=== PATIENT | female | born 1930 | race Caucasian/White ===

== ENCOUNTER 2017-05-26 11:50 | Inpatient (IN) | payer MEDICARE, BC ==
[2017-05-26] VITALS (7 sets, daily range): BP systolic 142–169; BP diastolic 81–89; PULSE 85–100; RESP 16; TEMP 97.6; O2SAT 96–97
[~2017-05-26] VITALS: Ht 167.6 cm; Wt 65.0 kg
[2017-05-26 12:16] LABS: BLOOD, URINE LARGE (NEG); GLUCOSE,URINE NEG (NEG); KETONE, URINE 15 mg/dL (NEG); NITRITE,URINE NEG (NEG); PH, URINE 5.5 (5.0-8.5); URINE LEUKOCYTE ESTERASE SMALL (NEG)
[2017-05-26] MEDS ORDERED: LOTR5CAP3 PO (12:26)
[2017-05-26] MEDS ORDERED: ASPI-516 CHEW (12:26)
[2017-05-26] MEDS ORDERED: PRIL20TA2 (12:26)
[2017-05-26 12:28] LABS: BILIRUBIN, URINE NEG (NEG)
[2017-05-26 12:30] LABS: URINE COLOR DARK-YELLOW (YELLW/STRAW)
--- NOTE | 2017-05-26 12:35 | PD ---
HPI Chief Complaint: Complaint Time Seen by Provider: 12:19 Travel History International Travel<30 days: No Contact w/Intl Traveler<30days: No Traveled to known affect area: No History of Present Illness HPI 86 year old female presenting with nausea and decreased appetite. She has felt nauseous for the past week and has not been eating as much as she normally does. She believes she has a UTI due to pelvic pressure. She denies dysuria, flank pain, fevers, chills. She says she feels similar to when she used to get UTIs. She is generally healthy and has a history of HTN. She also endorses a weight loss of approximately 15 pounds over the past 3 months. She's not been trying to lose weight. Denies any vaginal bleeding vaginal discharge. She is status post hysterectomy, denies any fevers. States symptoms are moderate, gradually worsening, for the past few days, associated signs symptoms as above. PFSH Past Medical History GERD: Yes Hypertension: Yes ?: Not Past Surgical History Hysterectomy: Yes Social History Alcohol Use: Yes (2 drinks per night) Tobacco Use: No Substance Use: No Allergies-Medications (Allergen,Severity, Reaction): Coded Allergies: No Known Allergies (Unverified , 05/26/17) Reported Meds & Prescriptions Reported Meds & Active Scripts Active Reported Aspirin 81 Mg Chew 81 Mg CHEW DAILY Prilosec (Omeprazole Magnesium) 20 Mg Tab Lotrel (Amlodipine-Benazepril) 5-20 Mg Cap 1 Cap PO DAILY Review of Systems Except as stated in HPI: all other systems reviewed are Neg Physical Exam Narrative GENERAL: in no acute distress, well appearing, thin. Quite pleasant. SKIN: Warm and dry. HEAD: Atraumatic. Normocephalic. EYES: Pupils equal and round. No scleral icterus. No injection or drainage. ENT: No nasal bleeding or discharge. Mucous membranes pink and moist. NECK: Trachea midline. No JVD. CARDIOVASCULAR: Regular rate and rhythm. RESPIRATORY: No accessory muscle use. Clear to auscultation. Breath sounds equal bilaterally. GASTROINTESTINAL: Abdomen soft, non-tender, nondistended. Hepatic and splenic margins not palpable. MUSCULOSKELETAL: Extremities without clubbing, cyanosis, or edema. No obvious deformities. NEUROLOGICAL: Awake and alert. No obvious cranial nerve deficits. Motor grossly within normal limits. Five out of 5 muscle strength in the arms and legs. Normal speech. PSYCHIATRIC: Appropriate mood and affect; insight and judgment normal. Data Data Last Documented VS Vital Signs Date Time Temp Pulse Resp B/P (MAP) Pulse Ox O2 Delivery O2 Flow Rate FiO2 05/26/17 15:20 91 16 149/83 (105) 97 Room Air 05/26/17 11:57 97.6 Orders Orders Urinalysis - C+S If Indicated (05/26/17 12:05) Basic Metabolic Panel (Bmp) (05/26/17 12:33) Complete Blood Count With Diff (05/26/17 12:33) Lipase (05/26/17 12:33) Iv Access Insert/Monitor (05/26/17 12:33) Ecg Monitoring (05/26/17 12:33) Oximetry (05/26/17 12:33) Sodium Chloride 0.9% Flush (Ns Flush) (05/26/17 12:45) Chest, Single Ap (05/26/17 12:33) Sodium Chlor 0.9% 1000 Ml Inj (Ns 1000 M (05/26/17 12:45) Ct Abd/Pel W/O Iv Contrast (05/26/17 ) Act Partial Throm Time (Ptt) (05/26/17 15:51) Prothrombin Time / Inr (Pt) (05/26/17 15:51) Consult Urology (05/26/17 ) Admit Order (Ed Use Only) (05/26/17 ) Labs Laboratory Tests Test 05/26/17 12:09 05/26/17 12:50 Urine Collection Type VOIDED Urine Color DARK-YELLOW Urine Turbidity HAZY Urine pH 5.5 Urine Specific [place] 1.025 Urine Protein 300 OR GREATER mg/dL Urine Glucose (UA) NEG mg/dL Urine Ketones 15 mg/dL Urine Occult Blood LARGE Urine Nitrite NEG Urine Bilirubin NEG Urine Leukocyte Esterase SMALL Urine RBC 25-49 /hpf Urine WBC 6-8 /hpf Urine Squamous Epithelial Cells 3-5 /hpf Urine Bacteria FEW /hpf Urine Hyaline Casts 10-14 /lpf Urine Mucus FEW /lpf Microscopic Urinalysis Comment CULT NOT INDICATED White Blood Count 11.6 TH/MM3 Red Blood Count 3.66 MIL/MM3 Hemoglobin 12.0 GM/DL Hematocrit 35.9 % Mean Corpuscular Volume 98.2 FL Mean Corpuscular Hemoglobin 32.7 PG Mean Corpuscular Hemoglobin Concent 33.3 % Red Cell Distribution Width 13.2 % Platelet Count 305 TH/MM3 Mean Platelet Volume 7.9 FL Neutrophils (%) (Auto) 82.3 % Lymphocytes (%) (Auto) 7.7 % Monocytes (%) (Auto) 7.5 % Eosinophils (%) (Auto) 0.2 % Basophils (%) (Auto) 2.3 % Neutrophils # (Auto) 9.5 TH/MM3 Lymphocytes # (Auto) 0.9 TH/MM3 Monocytes # (Auto) 0.9 TH/MM3 Eosinophils # (Auto) 0.0 TH/MM3 Basophils # (Auto) 0.3 TH/MM3 CBC Comment DIFF FINAL Differential Comment Prothrombin Time 10.2 SEC Prothromb Time International Ratio 1.0 RATIO Activated Partial Thromboplast Time 28.6 SEC Blood Urea Nitrogen 11 MG/DL Creatinine 0.98 MG/DL Random Glucose 117 MG/DL Calcium Level 9.0 MG/DL Sodium Level 137 MEQ/L Potassium Level 4.1 MEQ/L Chloride Level 104 MEQ/L Carbon Dioxide Level 22.4 MEQ/L Anion Gap 11 MEQ/L Estimat Glomerular Filtration Rate 54 ML/MIN Lipase 138 U/L [facility] Medical Decision Making Medical Screen Exam Complete: Yes Emergency Medical Condition: Yes Differential Diagnosis UTI, obstructive uropathy, hematuria, pelvic mass. Narrative Course Patient began her workup with a urinalysis which showed hematuria, workup was broadened to include basic labs which were fairly unremarkable, given her hematuria and her age had recommended that she undergo CT imaging to exclude mass, unfortunately the CT imaging did reveal a mass which was obstructing her ureter, the patient was discussed with Dr. Brower's who agrees for admission for further workup and management. Discussed with Dr. Vera who is also agreeable for admission. Dr. Brower's to consider further workup including nephrostomy tube by IR versus other management. All the results were discussed with the patient and she is agreeable to admission for management of her uropathy but regarding her cancer she is fairly certain she will not pursue aggressive therapy, she is open to seeing oncologists in the future just for more education and possibility of treatment though she would be highly resistant to this. She is alert and awake and oriented and is able to make her own medical decisions. Diagnosis Primary Impression: Pelvic mass in female Additional Impression: Obstructive uropathy Admitting Information Admitting Physician Requests: Admit Condition: Stable Yvon Teague MD May 26, 2017 12:35
[2017-05-26 12:37] LABS: MUCUS URINE FEW /lpf (OCC)
[2017-05-26 12:38] LABS: BACTERIA, URINE FEW /hpf
[2017-05-26] MEDS ORDERED: SODIUM CHLOR 0.9% 1000 ML INJ 1,000 ML IV ONE (12:45)
[2017-05-26] MEDS ORDERED: SODIUM CHLORIDE 0.9% FLUSH 10 ML FLUSH IV FLUSH PRN ×2 (12:45→16:15)
[2017-05-26 12:59] LABS: AUTOMATED NEUTROPHIL # 9.5 TH/MM3 (1.8-7.7); BASOPHIL # 0.3 TH/MM3 (0-0.2); BASOPHIL % 2.3 % (0.0-2.0); EOSINOPHIL % 0.2 % (0.0-4.0); HEMATOCRIT 35.9 % (35.0-46.0); LYMPH % 7.7 % (9.0-44.0); LYMPHOCYTE # 0.9 TH/MM3 (1.0-4.8); MEAN CELL VOLUME 98.2 FL (80.0-100.0); MEAN CORPUSCULAR HEMOGLOBIN 32.7 PG (27.0-34.0); MEAN CORPUSCULAR HGB CONC 33.3 % (32.0-36.0); MEAN PLATELET VOLUME 7.9 FL (7.0-11.0); MONO % 7.5 % (0.0-8.0); MONOCYTE # 0.9 TH/MM3 (0-0.9); NEUT % 82.3 % (16.0-70.0); PLATELET COUNT 305 TH/MM3 (150-450); RED BLOOD COUNT 3.66 MIL/MM3 (4.00-5.30); RED CELL DISTRIBUTION WIDTH 13.2 % (11.6-17.2); WHITE BLOOD COUNT 11.6 TH/MM3 (4.0-11.0)
--- NOTE | 2017-05-26 13:09 | RADRPT ---
EXAM DATE/TIME: 05/26/2017 12:53 [facility] COMPARISON: No previous studies available for comparison. INDICATIONS : Cough, weakness. MEDICAL HISTORY : None. SURGICAL HISTORY : None. ENCOUNTER: Initial ACUITY: 1 week PAIN SCORE: 0/10 LOCATION: Bilateral chest FINDINGS: A single view of the chest demonstrates the lungs to be symmetrically aerated without evidence of mas s, infiltrate or effusion. The cardiomediastinal contours are unremarkable other than age-appropriat e atherosclerotic changes of the aorta.. Osseous structures are intact. CONCLUSION: No acute disease. Jayesh Talbot MD on May 26, 2017 at 13:05 Board Certified Radiologist. This report was verified electronically.
[2017-05-26 13:29] LABS: BICARBONATE 22.4 MEQ/L (21.0-32.0)
[2017-05-26 13:33] LABS: CREATININE 0.98 MG/DL (0.50-1.00)
--- NOTE | 2017-05-26 15:22 | RADRPT ---
EXAM DATE/TIME: 05/26/2017 14:48 [facility] COMPARISON: No previous studies available for comparison. INDICATIONS : Pelvic pressure, nausea, and micro hematuria. ORAL CONTRAST: No oral contrast ingested. RADIATION DOSE: 14.27 CTDIvol (mGy) MEDICAL HISTORY : Hypertension. Gastroesophageal reflux disease. SURGICAL HISTORY : Hysterectomy. Right hip replacement. ENCOUNTER: Initial ACUITY: 2 days PAIN SCALE: 4/10 LOCATION: pelvis TECHNIQUE: Volumetric scanning of the abdomen and pelvis was performed. Using automated exposure control and adjustment of the mA and/or kV according to patient size, radiation dose was kept as low as reasonably achievable to obtain optimal diagnostic quality images. DICOM format image data is av ailable electronically for review and comparison. FINDINGS: The lung bases are clear. Bony structures are intact with degenerative changes of the l umbar spine degenerative disc disease and facet arthritic change as well as anterior marginal spurrin g. There is a total right hip prosthesis in place. Evidence of prior granulomatous disease is appreci ated with punctate calcifications in the liver and spleen with normal gallbladder and bilateral adren al glands. Right kidney is negative. Pancreas is normal. Vascular calcifications appreciated in the e monse and iliac vessels without evidence of aneurysm formation. Bowel distribution is benign with exte nsive diverticuli of the descending and sigmoid colon uncomplicated. The left kidney reveals reveals thinning of the cortex with hy dronephrosis and hydroureter extending to the pelvis where there is abutment into a 8.2 x 6.5 cm soft tissue mass. There is a history of hysterectomy. This mass could represent an ovarian mass. CONCLUSION: There is a left hydronephrosis and hydroureter extending down to an 8.2 cm left pelvi c soft tissue mass with a history of hysterectomy. The mass may be ovarian. Noted is thinning of the cortex of the left kidney which may represent chronic change. Other incidental findings as described above the most signif icant being extensive uncomplicated diverticuli throughout the colon. Jayesh Talbot MD on May 26, 2017 at 15:13 Board Certified Radiologist. This report was verified electronically.
[2017-05-26] MEDS: SODIUM CHLOR 0.9% 1000 ML INJ 1,000 ML IV SCH (16:14)
[2017-05-26] MEDS ORDERED: ACETAMINOPHEN 325 MG TAB PO PRN (16:15)
[2017-05-26] MEDS ORDERED: NALOXONE HCL 0.4 MG/ML AMP IV PUSH PRN (16:15)
[2017-05-26] MEDS ORDERED: SENNOSIDES 8.6 MG TAB PO PRN (16:15)
[2017-05-26 16:23] LABS: PROTHROMBIN TIME - PATIENT 10.2 SEC (9.8-11.6)
--- NOTE | 2017-05-26 17:11 | PD.CONS ---
HPI Service Urology Consult Requested By Reason for Consult Severe Left Hydronephrosis Primary Care Physician Non-Staff Diagnosis: History of Present Illness 86 yo female h/o UTI presented to ER with nausea, vomiting, weight loss, loss of appetite and general malaise intermittently for past couple months. She had CT A/P which showed a large pelvic mass causing left-sided severe hydronephrosis. Urology was consulted for these findings. She currently denies flank pain, hematuria, fevers, chills, dysuria. She has occasional urinary frequency but denies incontinence. She denies h/o kidney stones or malignancies. She had a hysterectomy years ago. Review of Systems Constitutional: COMPLAINS OF: Weight loss, Change in appetite Gastrointestinal: COMPLAINS OF: Nausea Genitourinary: COMPLAINS OF: Urinary frequency Except as stated in HPI: all other systems reviewed are Neg Past Family Social History Past Medical History UTI, GERD, HTN, arthritis Past Surgical History hysterectomy Reported Medications Lisinopril, Norvasc. Allergies: Coded Allergies: No Known Allergies (Unverified , 05/26/17) Family History Denies malignancies, urolithiasis Social History Denies tobacco, alcohol, illicit drugs. Lives in [place] for the summer. Physical Exam Vital Signs Date Time Temp Pulse Resp B/P (MAP) Pulse Ox O2 Delivery O2 Flow Rate FiO2 05/26/17 16:37 89 16 168/89 (115) 97 Room Air 05/26/17 15:20 91 16 149/83 (105) 97 Room Air 05/26/17 12:58 97 Room Air 05/26/17 11:57 97.6 100 16 142/84 (103) 96 Physical Exam GENERAL: This is a well-nourished, well-developed patient, in no apparent distress. SKIN: No rashes, ecchymoses or lesions. Cool and dry. HEAD: Atraumatic. Normocephalic. No temporal or scalp tenderness. EYES: Pupils equal round and reactive. Extraocular motions intact. No scleral icterus. No injection or drainage. ENT: Nose without bleeding, purulent drainage or septal hematoma. Throat without erythema, tonsillar hypertrophy or exudate. Uvula midline. Airway patent. NECK: Trachea midline. No JVD or lymphadenopathy. Supple, nontender, no meningeal signs. CARDIOVASCULAR: Regular rate and rhythm without murmurs, gallops, or rubs. RESPIRATORY: Clear to auscultation. Breath sounds equal bilaterally. No wheezes , rales, or rhonchi. GASTROINTESTINAL: Abdomen soft, non-tender, nondistended. No hepato-splenomegaly , or palpable masses. No guarding. GENITOURINARY: no CVAT bilaterally. MUSCULOSKELETAL: Extremities without clubbing, cyanosis, or edema. No joint tenderness, effusion, or edema noted. No calf tenderness. Negative Homans sign bilaterally. NEUROLOGICAL: Awake and alert. Cranial nerves II through XII intact. Motor and sensory grossly within normal limits. Five out of 5 muscle strength in all muscle groups. Normal speech. Lab results reviewed: Yes Laboratory Tests Test 05/26/17 12:09 05/26/17 12:50 Urine Collection Type VOIDED Urine Color DARK-YELLOW Urine Turbidity HAZY Urine pH 5.5 Urine Specific [place] 1.025 Urine Protein 300 OR GREATER Urine Glucose (UA) NEG Urine Ketones 15 Urine Occult Blood LARGE Urine Nitrite NEG Urine Bilirubin NEG Urine Leukocyte Esterase SMALL Urine RBC 25-49 Urine WBC 6-8 Urine Squamous Epithelial Cells 3-5 Urine Bacteria FEW Urine Hyaline Casts 10-14 Urine Mucus FEW Microscopic Urinalysis Comment CULT NOT INDICATED White Blood Count 11.6 Red Blood Count 3.66 Hemoglobin 12.0 Hematocrit 35.9 Mean Corpuscular Volume 98.2 Mean Corpuscular Hemoglobin 32.7 Mean Corpuscular Hemoglobin Concent 33.3 Red Cell Distribution Width 13.2 Platelet Count 305 Mean Platelet Volume 7.9 Neutrophils (%) (Auto) 82.3 Lymphocytes (%) (Auto) 7.7 Monocytes (%) (Auto) 7.5 Eosinophils (%) (Auto) 0.2 Basophils (%) (Auto) 2.3 Neutrophils # (Auto) 9.5 Lymphocytes # (Auto) 0.9 Monocytes # (Auto) 0.9 Eosinophils # (Auto) 0.0 Basophils # (Auto) 0.3 CBC Comment DIFF FINAL Differential Comment Prothrombin Time 10.2 Prothromb Time International Ratio 1.0 Activated Partial Thromboplast Time 28.6 Blood Urea Nitrogen 11 Creatinine 0.98 Random Glucose 117 Calcium Level 9.0 Sodium Level 137 Potassium Level 4.1 Chloride Level 104 Carbon Dioxide Level 22.4 Anion Gap 11 Estimat Glomerular Filtration Rate 54 Lipase 138 Result Diagram: 05/26/17 1250 05/26/17 1250 Personally reviewed images: Yes (severe left hydronephrosis secondary to extrinsic compression from large pelvic mass) Imaging Last Impressions Chest X-Ray 05/26/17 1233 Signed Impressions: Service Date/Time: Friday, May 26, 2017 12:53 - CONCLUSION: No acute disease. Jayesh Talbot MD Abdomen/Pelvis CT 05/26/17 0000 Signed Impressions: Service Date/Time: Friday, May 26, 2017 14:48 - CONCLUSION: There is a left hydronephrosis and hydroureter extending down to an 8.2 cm left pelvic soft tissue mass with a history of hysterectomy. The mass may be ovarian. Noted is thinning of the cortex of the left kidney which may represent chronic change. Other incidental findings as described above the most significant being extensive uncomplicated diverticuli throughout the colon. Jayesh Talbot MD Assessment and Plan Assessment and Plan 86 yo female h/o UTI with large pelvic mass, severe left hydronephrosis -Hydronephrosis appears chronic in nature as there is severe cortical thinning. -She is asymptomatic and Creatinine normal -Will obtain Lasix Renogram but she will likely not need any urological intervention. -Agree with Oncology consult. Likely need PErcutaneous Biopsy of mass. -Thank you for this consult. Lazaro Sanchez MD May 26, 2017 17:11
--- NOTE | 2017-05-26 17:40 | HHI.HP ---
[facility] Service [facility] Primary Care Physician Non-Staff Admission Diagnosis Obstructive Uropathy. Diagnoses: Chief Complaint: Dizziness and nausea Travel History International Travel<30 Days: No Contact w/Intl Traveler <30 Da: No Traveled to Known Affected Are: No History of Present Illness This patient is a 86-year-old female with a history of hypertension. She is visiting from [place] and had increasing nausea with poor appetite and weight loss which is unquantified. This is persistent over the last 2 weeks. Her friend and should come to the hospital. She thought she had urinary tract infection. Urinary sample is taken did have some microscopic hematuria. Patient had some pelvic pressure without constipation and a CT of abdomen pelvis was done which did show a significant sized pelvic mass. This is questionably ovarian in nature. Patient is has a history of hysterectomy in her 30s. She notes no vaginal bleeding or urinary bleeding. She has not had any back pain. She did get recommended for further evaluation in the hospital due to evidence of hydronephrosis and obstruction of her kidney. Otherwise she has no complaints. Review of Systems Constitutional: COMPLAINS OF: Fatigue, Weight loss (unquantified), DENIES: Diaphoretic episodes, Fever, Weight gain, Chills, Dizziness, Change in appetite , Night Sweats Endocrine: DENIES: Abnorml menstrual pattern, Heat/cold intolerance, Polydipsia , Polyuria, Polyphagia Eyes: DENIES: Blurred vision, Diplopia, Eye inflammation, Eye pain, Vision loss , Photosensitivity, Double Vision Ears, nose, mouth, throat: DENIES: Tinnitus, Hearing loss, Vertigo, Nasal discharge, Oral lesions, Throat pain, Hoarseness, Ear Pain, Running Nose, Epistaxis, Sinus Pain, Toothache, Odynophagia Respiratory: DENIES: Apneas, Cough, Snoring, Wheezing, Hemoptysis, Sputum production, Shortness of breath Cardiovascular: DENIES: Chest pain, Palpitations, Syncope, Dyspnea on Exertion , PND, Lower Extremity Edema, Orthopnea, Claudication Gastrointestinal: DENIES: Abdominal pain, Black stools, Bloody stools, Constipation, Diarrhea, Nausea, Vomiting, Difficulty Swallowing, Anorexia Genitourinary: DENIES: Abnormal vaginal bleeding, Dysmenorrhea, Dyspareunia, Sexual dysfunction, Urinary frequency, Urinary incontinence, Urgency, Hematuria , Dysuria, Nocturia, Vaginal discharge Musculoskeletal: DENIES: Joint pain, Muscle aches, Stiffness, Joint Swelling, Back pain, Neck pain Integumentary: DENIES: Abnormal pigmentation, Pruritus, Rash, Nail changes, Breast masses, Breast skin changes, Nipple discharge Hematologic/lymphatic: DENIES: Bruising, Lymphadenopathy Immunologic/allergic: DENIES: Eczema, Urticaria Neurologic: DENIES: Abnormal gait, Headache, Localized weakness, Paresthesias, Seizures, Speech Problems, Tremor, Poor Balance Psychiatric: DENIES: Anxiety, Confusion, Mood changes, Depression, Hallucinations, Agitation, Suicidal Ideation, Homicidal Ideation, Delusions Except as stated in HPI: all other systems reviewed are Neg Past Family Social History Past Medical History Hypertension Past Surgical History Bilateral knee replacement Shoulder surgery Total abdominal hysterectomy in her late 30s Reported Medications Reviewed in the EMR Allergies: Coded Allergies: No Known Allergies (Unverified , 05/26/17) Active Ordered Medications Reviewed in the EMR Family History No family history of malignancy, mother and father in her 70s or 80s Daughter has some sort of reproductive cancer Social History Denies tobacco or alcohol dependency Physical Exam Vital Signs Vital Signs Date Time Temp Pulse Resp B/P (MAP) Pulse Ox O2 Delivery O2 Flow Rate FiO2 05/26/17 16:37 89 16 168/89 (115) 97 Room Air 05/26/17 15:20 91 16 149/83 (105) 97 Room Air 05/26/17 12:58 97 Room Air 05/26/17 11:57 97.6 100 16 142/84 (103) 96 Physical Exam GENERAL: This is a well-nourished, well-developed patient, in no apparent distress. SKIN: No rashes, ecchymoses or lesions. Cool and dry. HEAD: Atraumatic. Normocephalic. No temporal or scalp tenderness. EYES: Pupils equal round and reactive. Extraocular motions intact. No scleral icterus. No injection or drainage. ENT: Nose without bleeding, purulent drainage or septal hematoma. Throat without erythema, tonsillar hypertrophy or exudate. Uvula midline. Airway patent. NECK: Trachea midline. No JVD or lymphadenopathy. Supple, nontender, no meningeal signs. CARDIOVASCULAR: Regular rate and rhythm without murmurs, gallops, or rubs. RESPIRATORY: Clear to auscultation. Breath sounds equal bilaterally. No wheezes , rales, or rhonchi. GASTROINTESTINAL: Abdomen soft, non-tender, nondistended. No hepato-splenomegaly , or palpable masses. No guarding. MUSCULOSKELETAL: Extremities without clubbing, cyanosis, or edema. No joint tenderness, effusion, or edema noted. No calf tenderness. Negative Homans sign bilaterally. NEUROLOGICAL: Awake and alert. Cranial nerves II through XII intact. Motor and sensory grossly within normal limits. Five out of 5 muscle strength in all muscle groups. Normal speech. Laboratory Laboratory Tests Test 05/26/17 12:09 05/26/17 12:50 Urine Collection Type VOIDED Urine Color DARK-YELLOW Urine Turbidity HAZY Urine pH 5.5 Urine Specific [place] 1.025 Urine Protein 300 OR GREATER Urine Glucose (UA) NEG Urine Ketones 15 Urine Occult Blood LARGE Urine Nitrite NEG Urine Bilirubin NEG Urine Leukocyte Esterase SMALL Urine RBC 25-49 Urine WBC 6-8 Urine Squamous Epithelial Cells 3-5 Urine Bacteria FEW Urine Hyaline Casts 10-14 Urine Mucus FEW Microscopic Urinalysis Comment CULT NOT INDICATED White Blood Count 11.6 Red Blood Count 3.66 Hemoglobin 12.0 Hematocrit 35.9 Mean Corpuscular Volume 98.2 Mean Corpuscular Hemoglobin 32.7 Mean Corpuscular Hemoglobin Concent 33.3 Red Cell Distribution Width 13.2 Platelet Count 305 Mean Platelet Volume 7.9 Neutrophils (%) (Auto) 82.3 Lymphocytes (%) (Auto) 7.7 Monocytes (%) (Auto) 7.5 Eosinophils (%) (Auto) 0.2 Basophils (%) (Auto) 2.3 Neutrophils # (Auto) 9.5 Lymphocytes # (Auto) 0.9 Monocytes # (Auto) 0.9 Eosinophils # (Auto) 0.0 Basophils # (Auto) 0.3 CBC Comment DIFF FINAL Differential Comment Prothrombin Time 10.2 Prothromb Time International Ratio 1.0 Activated Partial Thromboplast Time 28.6 Blood Urea Nitrogen 11 Creatinine 0.98 Random Glucose 117 Calcium Level 9.0 Sodium Level 137 Potassium Level 4.1 Chloride Level 104 Carbon Dioxide Level 22.4 Anion Gap 11 Estimat Glomerular Filtration Rate 54 Lipase 138 Result Diagram: 05/26/17 1250 05/26/17 1250 Imaging Last Impressions Chest X-Ray 05/26/17 1233 Signed Impressions: Service Date/Time: Friday, May 26, 2017 12:53 - CONCLUSION: No acute disease. Jayesh Talbot MD Abdomen/Pelvis CT 05/26/17 0000 Signed Impressions: Service Date/Time: Friday, May 26, 2017 14:48 - CONCLUSION: There is a left hydronephrosis and hydroureter extending down to an 8.2 cm left pelvic soft tissue mass with a history of hysterectomy. The mass may be ovarian. Noted is thinning of the cortex of the left kidney which may represent chronic change. Other incidental findings as described above the most significant being extensive uncomplicated diverticuli throughout the colon. MD Huyen Estrella VTE Risk Assessment Caprini VTE Risk Assessment: Mod/High Risk (score >= 2) Caprini Risk Assessment Model Point Value = 1 Point Value = 2 Point Value = 3 Point Value = 5 Age 41-60 Minor surgery BMI > 25 kg/m2 Swollen legs Varicose veins or History of unexplained or recurrent spontaneous Oral contraceptives or hormone replacement Sepsis (< 1 month) Serious lung disease, including pneumonia (< 1 month) Abnormal pulmonary function Acute myocardial infarction Congestive heart failure (< 1 month) History of inflammatory bowel disease Medical patient at bed rest Age 61-74 Arthroscopic surgery Major open surgery (> 45 min) Laparoscopic surgery (> 45 min) Malignancy Confined to bed (> 72 hours) Immobilizing plaster cast Central venous access Age >= 75 History of VTE Family history of VTE Factor V Leiden Prothrombin [id number] Lupus anticoagulant Anticardiolipin antibodies Elevated serum homocysteine Heparin-induced thrombocytopenia Other congenital or acquired thrombophilia Stroke (< 1 month) Elective arthroplasty Hip, pelvis, or leg fracture Acute spinal cord injury (< 1 month) Prophylaxis Regimen Total Risk Factor Score Risk Level Prophylaxis Regimen 0-1 Low Early ambulation 2 Moderate Order ONE of the following: *Sequential Compression Device (SCD) *Heparin 5000 units SQ BID 3-4 Higher Order ONE of the following medications: *Heparin 5000 units SQ TID *Enoxaparin/Lovenox 40 mg SQ daily (WT < 150 kg, CrCl > 30 mL/min) *Enoxaparin/Lovenox 30 mg SQ daily (WT < 150 kg, CrCl > 10-29 mL/min) *Enoxaparin/Lovenox 30 mg SQ BID (WT < 150 kg, CrCl > 30 mL/min) AND/OR *Sequential Compression Device (SCD) 5 or more Highest Order ONE of the following medications: *Heparin 5000 units SQ TID (Preferred with Epidurals) *Enoxaparin/Lovenox 40 mg SQ daily (WT < 150 kg, CrCl > 30 mL/min) *Enoxaparin/Lovenox 30 mg SQ daily (WT < 150 kg, CrCl > 10-29 mL/min) *Enoxaparin/Lovenox 30 mg SQ BID (WT < 150 kg, CrCl > 30 mL/min) AND *Sequential Compression Device (SCD) Assessment and Plan Problem List: (1) Pelvic mass in female ICD Code: R19.00 - Intra-abdominal and pelvic swelling, mass and lump, unspecified site Plan: Renogram to evaluate any function Neurology, hematology/oncology to see Patient is apprehensive to pursue aggressive therapy but would like to speak with her family who will be arriving tomorrow Assessment and Plan No further inpatient procedures are needed and patient stable likely consider outpatient evaluation either in [place] or locally Jolanta Vera MD May 26, 2017 17:40
[2017-05-26] MEDS: SODIUM CHLORIDE 0.9% FLUSH 10 ML FLUSH IV FLUSH SCH (21:00)
[2017-05-26] MEDS ORDERED: ZOLPIDEM TARTRATE 5 MG TAB PO PRN (22:00)
[2017-05-26] MEDS ORDERED: ONDANSETRON ODT 4 MG TAB PO PRN (22:00)
[2017-05-27] VITALS (7 sets, daily range): BP systolic 132–164; BP diastolic 69–90; PULSE 79–95; RESP 15–18; TEMP 97.6–98.6; O2SAT 95–97
[2017-05-27] MEDS: SODIUM CHLOR 0.9% 1000 ML INJ 1,000 ML IV SCH (03:51)
[2017-05-27] MEDS: SODIUM CHLORIDE 0.9% FLUSH 10 ML FLUSH IV FLUSH SCH ×2 (08:59→21:00)
[2017-05-27] MEDS: LISINOPRIL 20 MG TAB PO SCH (09:00)
[2017-05-27] MEDS: amLODIPine BESYLATE 5 MG TAB PO SCH (09:00)
--- NOTE | 2017-05-27 12:44 | HHI.PR ---
Subjective Remarks Patient seen today in follow-up for new pelvic mass found. Renal scan is pending Care plan and diagnoses so far discussed with patient and daughter at bedside Objective Vitals Vital Signs Date Time Temp Pulse Resp B/P (MAP) Pulse Ox O2 Delivery O2 Flow Rate FiO2 05/27/17 11:40 97.6 85 15 150/90 (110) 96 05/27/17 09:05 05/27/17 08:50 79 16 148/81 (103) 97 Room Air 05/27/17 05:58 83 16 132/69 (90) 96 Room Air 05/27/17 03:54 82 16 132/72 (92) 96 Room Air 05/27/17 02:00 86 16 164/82 (109) 97 Room Air 05/26/17 23:56 85 16 158/81 (106) 96 Room Air 05/26/17 20:00 86 16 169/86 (113) 97 Room Air 05/26/17 17:42 92 16 149/83 (105) 97 Room Air 05/26/17 16:37 89 16 168/89 (115) 97 Room Air 05/26/17 15:20 91 16 149/83 (105) 97 Room Air 05/26/17 12:58 97 Room Air I/O 05/26/17 05/26/17 05/26/17 05/27/17 05/27/17 05/27/17 06:59 14:59 22:59 06:59 14:59 22:59 Intake Total 1000 ml 360 ml Balance 1000 ml 360 ml Intake Oral 360 ml IV Total 1000 ml # Voids 1 Result Diagram: 05/26/17 1250 05/26/17 1250 Objective Remarks GENERAL: This is a well-nourished, well-developed patient, in no apparent distress. CARDIOVASCULAR: Regular rate and rhythm without murmurs, gallops, or rubs. RESPIRATORY: Clear to auscultation. Breath sounds equal bilaterally. No wheezes , rales, or rhonchi. GASTROINTESTINAL: Abdomen soft, non-tender, nondistended. Normal active bowel sounds MUSCULOSKELETAL: Extremities without clubbing, cyanosis, or edema. NEURO: Alert & Oriented x4 to person, place, time, situation. Moves all ext x4 A/P Problem List: (1) Pelvic mass in female ICD Code: R19.00 - Intra-abdominal and pelvic swelling, mass and lump, unspecified site Plan: Renogram to evaluate any function Neurology, hematology/oncology to see, d/w dr Brenner this am Patient is apprehensive to pursue aggressive therapy but would like to pursue Bx Discharge Planning pending bx, likely outpatient follow up Jolanta Vera MD May 27, 2017 12:44
[2017-05-27] MEDS ORDERED: FUROSEMIDE 40 MG/4 ML VIAL IV PUSH ONE (13:42)
--- NOTE | 2017-05-27 15:56 | RADRPT ---
EXAM DATE/TIME: 05/27/2017 13:13 [place] COMPARISON: CT ABDOMEN & PELVIS W/O CONTRAST, May 26, 2017, 14:48. INDICATIONS : Hydronephrosis. DOSE: 20.2 mCi Tc99m DTPA IV MEDICATION: 40 mg Lasix IV MEDICAL HISTORY : Hypertension. SURGICAL HISTORY : Hysterectomy. ENCOUNTER: Initial ACUITY: 1 day PAIN SCALE: 2/10 LOCATION: Pelvis. TECHNIQUE: Dynamic images were performed in the posterior projection for a total of 28 minutes. FINDINGS: FLOW: There is normal flow to the right kidney. Very minimal flow to the left kidney. There is homogeneous perfusion to right kidney without significant effusion to the left kidney. EXCRETION: There is normal renal cortical transit time and normal rate of washout from the right renal parenchym a. No excretion left kidney. CONCLUSION: Severe hydronephrosis and nonfunctioning left kidney. Juan Francisco Templeton MD on May 27, 2017 at 15:51 Board Certified Radiologist. This report was verified electronically.
--- NOTE | 2017-05-27 16:34 | HHI.PR ---
Subjective Patient symptoms today denies pain. Denies fevers, nausea. voiding frequently since getting Lasix during Renal Scan. Objective Vital Signs Vital Signs Date Time Temp Pulse Resp B/P (MAP) Pulse Ox O2 Delivery O2 Flow Rate FiO2 05/27/17 11:40 97.6 85 15 150/90 (110) 96 05/27/17 09:05 05/27/17 08:50 79 16 148/81 (103) 97 Room Air 05/27/17 05:58 83 16 132/69 (90) 96 Room Air 05/27/17 03:54 82 16 132/72 (92) 96 Room Air 05/27/17 02:00 86 16 164/82 (109) 97 Room Air 05/26/17 23:56 85 16 158/81 (106) 96 Room Air 05/26/17 20:00 86 16 169/86 (113) 97 Room Air 05/26/17 17:42 92 16 149/83 (105) 97 Room Air 05/26/17 16:37 89 16 168/89 (115) 97 Room Air Intake & Output 05/27/17 05/27/17 07:00 19:00 # Voids 1 Result Diagram: 05/26/17 1250 05/26/17 1250 Imaging Last 24 hours Impressions Renal Scan w/Medication NM 05/27/17 0600 Signed Impressions: Service Date/Time: Saturday, May 27, 2017 13:13 - CONCLUSION: Severe hydronephrosis and nonfunctioning left kidney. Juan Francisco Templeton MD Objective Remarks NAD. A/O x 3 abd soft Medications and IVs Current Medications Medications (Trade) Dose Ordered Sig/Mary Anne Route Start Time Stop Time Status Last Admin (NS Flush) 2 ml UNSCH PRN IV FLUSH 05/26/17 16:15 (NS Flush) 2 ml BID IV FLUSH 05/26/17 21:00 (Tylenol) 650 mg Q4H PRN PO 05/26/17 16:15 (Narcan Inj) 0.4 mg UNSCH PRN IV PUSH 05/26/17 16:15 (Senokot) 17.2 mg Q12H PRN PO 05/26/17 16:15 (Norvasc) 5 mg DAILY PO 05/27/17 09:00 05/27/17 09:00 (Prinivil) 20 mg DAILY PO 05/27/17 09:00 05/27/17 09:00 (Zofran Odt) 4 mg Q4H PRN PO 05/26/17 22:00 (Ambien) 5 mg HS PRN PO 05/26/17 22:00 Assessment and Plan Assessment and Plan 86 yo female h/o UTI with large pelvic mass, severe left hydronephrosis -Lasix Renogram reviewed. She has a nonfunction left kidney. -conservative management. No urological intervention needed. -Ok to d/c from standpoint. -Call with questions. Available as needed. Lazaro Sanchez MD May 27, 2017 16:34
[2017-05-28] VITALS: BP 146/76; PULSE 80; RESP 16; TEMP 97.6; O2SAT 95
[2017-05-28 04:00] VITALS: PULSE 72; RESP 14; O2SAT 96
--- NOTE | 2017-05-28 05:59 | MB ---
cc: SHAVONNE ADRIAN DATE OF CONSULTATION May 27, 2017. REASON FOR CONSULTATION Patient with a large pelvic mass. HISTORY OF PRESENT ILLNESS This is an 86-year-old elderly female who has a history of hypertension, osteoarthritis, who is visiting [place] from [place]. She has become progressively weak, nauseous, had poor appetite and abdominal fullness with urinary symptoms. She thought that she was having a UTI. She was brought to the emergency room. She underwent a CT of the abdomen and pelvis. She was found to have large hydronephrosis and hydroureter and there was a large left pelvic soft tissue mass measuring 8.2 cm. She has a history of hysterectomy when she was in her 30s. The patient has been seen by Urology as well. She has no past medical history of any type of malignancy. REVIEW OF SYSTEMS A comprehensive review of systems was completed which is negative except as described in the HPI. PAST MEDICAL HISTORY Hypertension. PAST SURGICAL HISTORY 1. Bilateral knee replacement. 2. Shoulder surgery. 3. Total abdominal hysterectomy in late 30s. MEDICATIONS Reviewed in the EMR. ALLERGIES No known drug allergies. FAMILY HISTORY Reviewed and it is noncontributory to this admission. Her daughter has some kind of gynecological malignancy. SOCIAL HISTORY She does not smoke cigarettes. She does not drink alcohol. She states that she was fairly functional until recently. PHYSICAL EXAMINATION VITAL SIGNS: Blood pressure is 133/78, pulse in the 90s, temperature is 98.6, O2 sats are 95% on room air. GENERAL: Elderly female who is awake and alert. She is sitting up in the bed. She is eating steak. HEENT: Pupils are equal, round, react to light. EOMI. No thrush. No oral lesions. NECK: Supple. No JVD, no bruits. No lymphadenopathy. CHEST: Clear to auscultation bilaterally. CARDIAC: S1, S2. Regular rate and rhythm. ABDOMEN: Soft, nontender, nondistended. Bowel sounds are present. EXTREMITIES: Without any edema, erythema or cyanosis. SKIN: Without any petechiae, lesion or bruises. NEUROLOGIC: No focal deficits. PSYCHIATRIC: Mood and affect appropriate. LABORATORY DATA WBC 11.6, hemoglobin 12, platelet count 305. Serum chemistries - Sodium is 137, potassium 4.1, chloride 104, CO2 is 22.4, anion gap is 11, BUN is 11, creatinine 0.98. GFR is 54. Calcium is 9. Lipase is 138. IMAGING STUDIES Chest x-ray was reviewed. No acute cardiopulmonary disease. CT of the abdomen and pelvis was reviewed and described in the HPI. ASSESSMENT AND PLAN This is an 86-year-old elderly female who presented to the emergency department with urinary tract symptoms, nausea, abdominal fullness and was found to have a large pelvic mass based on the CT scan. Large left pelvic soft tissue mass which is at least 8.2 cm. This is concerning for an underlying gynecological malignancy. This is an elderly lady. I had a long discussion with her. Her daughter was present during this conversation. The daughter stated that they would like to pursue a diagnosis. They are not sure whether they will seek any treatment. The daughter stated that she would like to know what the diagnosis is and then make up her mind. The patient agreed with the daughter's suggestions. We will ask IR to obtain a biopsy of this pelvic lesions. It will take approximately five business days before pathology results are available. This patient can be discharged home and followed up in the outpatient clinic. I will obtain tumor markers including CA-125-5 and CEA levels and will also check LDH levels. Thank you for allowing me to participate in the care of this patient. The patient can be discharged home from the oncology perspective once the biopsy is done. She will have outpatient followup. MD LIEN Lynch/RONAK /12:52 AM /5:36 AM
[2017-05-28 08:00] VITALS: BP 134/75; PULSE 70; RESP 16; TEMP 97.4; O2SAT 97
[2017-05-28 09:50] VITALS: BP 146/84; PULSE 83; RESP 18; TEMP 97
[2017-05-28] MEDS: LISINOPRIL 20 MG TAB PO SCH (09:51)
[2017-05-28] MEDS: SODIUM CHLORIDE 0.9% FLUSH 10 ML FLUSH IV FLUSH SCH (09:51)
[2017-05-28] MEDS: amLODIPine BESYLATE 5 MG TAB PO SCH (09:51)
[2017-05-28 10:30] LABS: CARCINOEMBRYONIC ANTIGEN 5.3 NG/ML (0.2-5.0)
[2017-05-28] MEDS ORDERED: PROM25TA10 PO (11:05)
[2017-05-28] MEDS ORDERED: ONDA4TAB7 PO (11:05)
--- NOTE | 2017-05-28 11:05 | HHI.DCPOC ---
Discharge Care Plan Diagnosis: (1) Pelvic mass in female (2) Obstructive uropathy Goals to Promote Your Health * To prevent worsening of your condition and complications * To maintain your health at the optimal level Directions to Meet Your Goals Take your medications as prescribed Follow your dietary instruction Follow activity as directed Keep your appointments as scheduled Take your immunizations and boosters as scheduled If your symptoms worsen call your PCP, if no PCP go to Urgent Care Center or Emergency Room Smoking is Dangerous to Your Health. Avoid second hand smoke Call the 24-hour hour crisis hotline for domestic abuse at Jolanta Vera MD May 28, 2017 11:05
[2017-05-28 11:07] LABS: CA 125 95.6 U/ML (0.0-30.2)
--- NOTE | 2017-05-28 11:19 | HHI.DS ---
Discharge Summary Admission Date May 26, 2017 at 16:19 Discharge Date: May 28, 2017 Admitting Diagnosis Obstructive Uropathy. (1) Pelvic mass in female ICD Code: R19.00 - Intra-abdominal and pelvic swelling, mass and lump, unspecified site Procedures None Brief History - From Admission This patient is a 86-year-old female with a history of hypertension. She is visiting from [place] and had increasing nausea with poor appetite and weight loss which is unquantified. This is persistent over the last 2 weeks. Her friend and should come to the hospital. She thought she had urinary tract infection. Urinary sample is taken did have some microscopic hematuria. Patient had some pelvic pressure without constipation and a CT of abdomen pelvis was done which did show a significant sized pelvic mass. This is questionably ovarian in nature. Patient is has a history of hysterectomy in her 30s. She notes no vaginal bleeding or urinary bleeding. She has not had any back pain. She did get recommended for further evaluation in the hospital due to evidence of hydronephrosis and obstruction of her kidney. Otherwise she has no complaints. CBC/BMP: 05/26/17 1250 05/26/17 1250 Significant Findings Laboratory Tests Test 05/26/17 12:09 05/26/17 12:50 05/28/17 08:10 Urine Color DARK-YELLOW (YELLW/STRAW) Urine Turbidity HAZY (CLEAR) Urine Protein 300 OR GREATER mg/dL Urine Ketones 15 mg/dL (NEG) Urine Occult Blood LARGE (NEG) Urine Leukocyte Esterase SMALL (NEG) Urine RBC 25-49 /hpf (0-3) Urine WBC 6-8 /hpf (0-5) Urine Bacteria FEW /hpf (NONE) Urine Hyaline Casts 10-14 /lpf (RARE) Urine Mucus FEW /lpf (OCC) White Blood Count 11.6 TH/MM3 (4.0-11.0) Red Blood Count 3.66 MIL/MM3 (4.00-5.30) Neutrophils (%) (Auto) 82.3 % (16.0-70.0) Lymphocytes (%) (Auto) 7.7 % (9.0-44.0) Basophils (%) (Auto) 2.3 % (0.0-2.0) Neutrophils # (Auto) 9.5 TH/MM3 (1.8-7.7) Lymphocytes # (Auto) 0.9 TH/MM3 (1.0-4.8) Basophils # (Auto) 0.3 TH/MM3 (0-0.2) Random Glucose 117 MG/DL (74-106) Estimat Glomerular Filtration Rate 54 ML/MIN (>89) Carcinoembryonic Antigen 5.3 NG/ML (0.2-5.0) Imaging Last Impressions Renal Scan w/Medication NM 05/27/17 0600 Signed Impressions: Service Date/Time: Saturday, May 27, 2017 13:13 - CONCLUSION: Severe hydronephrosis and nonfunctioning left kidney. Juan Francisco Templeton MD Chest X-Ray 05/26/17 1233 Signed Impressions: Service Date/Time: Friday, May 26, 2017 12:53 - CONCLUSION: No acute disease. Jayesh Talbot MD Abdomen/Pelvis CT 05/26/17 0000 Signed Impressions: Service Date/Time: Friday, May 26, 2017 14:48 - CONCLUSION: There is a left hydronephrosis and hydroureter extending down to an 8.2 cm left pelvic soft tissue mass with a history of hysterectomy. The mass may be ovarian. Noted is thinning of the cortex of the left kidney which may represent chronic change. Other incidental findings as described above the most significant being extensive uncomplicated diverticuli throughout the colon. Jayesh Talbot MD PE at Discharge GENERAL: This is a well-nourished, well-developed patient, in no apparent distress. CARDIOVASCULAR: Regular rate and rhythm without murmurs, gallops, or rubs. RESPIRATORY: Clear to auscultation. Breath sounds equal bilaterally. No wheezes , rales, or rhonchi. GASTROINTESTINAL: Abdomen soft, non-tender, nondistended. Normal active bowel sounds MUSCULOSKELETAL: Extremities without clubbing, cyanosis, or edema. NEURO: Alert & Oriented x4 to person, place, time, situation. Moves all ext x4 Hospital Course This patient is an 86-year-old female was admitted to the hospital for some abdominal discomfort. She was evaluated for this and found have a pelvic mass. She had some microscopic hematuria and urinary studies that show loss of kidney function but with conversation from the other kidney as above. Patient did well and was seen by the oncology team who recommended further evaluation perhaps by biopsy versus excision. Patient says that she would like to consider her options as outpatient and would like to go home. Multiple discussions were with the family and the patient. Certainly it is unclear if this is a benign or malignant tumor as patient has had a hysterectomy in the past. Also this tumor appears to have been there quite a while without causing any problems prior to this evaluation. Pt Condition on Discharge: Good Discharge Disposition: Discharge Home Discharge Time: <= 30 minutes Discharge Instructions DIET: Follow Instructions for: As Tolerated, No Restrictions Activities you can perform: Regular-No Restrictions Follow up Referrals: Oncology - 2 Weeks with jessika diana Oncology/Hematology - 1 Week with Dwight Brenner MD New Medications: Promethazine (Phenergan) 25 Mg Tablet 25 MG PO Q6H PRN for NAUSEA OR VOMITING, #30 TAB 0 Refills Ondansetron Odt (Ondansetron Odt) 4 Mg Tab 4 MG PO Q4H PRN for nausea, #28 TAB Continued Medications: Amlodipine-Benazepril (Lotrel) 5-20 Mg Cap 1 CAP PO DAILY for Blood Pressure Management, #30 CAP 0 Refills Aspirin (Aspirin) 81 Mg Chew 81 MG CHEW DAILY, TAB 0 Refills Omeprazole Magnesium (Prilosec) 20 Mg Tab Jolanta Vera MD May 28, 2017 11:19
[2017-05-28 12:00] VITALS: BP 140/73; PULSE 80; RESP 24; TEMP 97.5; O2SAT 96
--- NOTE | 2017-05-28 15:18 | RADRPT ---
EXAM DATE/TIME: 05/28/2017 00:00 [facility] COMPARISON: CT ABDOMEN & PELVIS W/O CONTRAST, May 26, 2017, 14:48. INDICATIONS : Pelvic mass biopsy HPI: 86 year-old female here visiting on vacation found to have a mass involving the pelvis on CT of the a bdomen and pelvis. The patient has had a prior hysterectomy per report given to me. A request has bee n made for biopsy. IMAGING STUDIES: CT of the abdomen and pelvis May 26, 2017. This reveals a 8.2 x 6.4 cm soft tissue mass within th e left adnexa. This is generating hydronephrosis on the left. The uterus is surgically absent. DISCUSSION: Pelvic mass. This is most likely ovarian in origin. I had a discussion with Dr. Vera. Typically ovar jennifer malignancies do not undergo percutaneous biopsy as the definitive therapy is surgical excision. T here is the potential for seeding of the peritoneum with percutaneous biopsy of ovarian malignancies. It is my understanding that the patient is not necessarily willing to proceed with any form of thera py. If the patient does wish to proceed with therapy consultation with [facility] is needed prior t o any percutaneous biopsy. PLAN: Consultation with [facility] to evaluate for need for percutaneous biopsy. TIME SPENT: 15 minutes Danish Gonsales Jr., MD on May 28, 2017 at 15:10 Board Certified Radiologist. This report was verified electronically.
== END 2017-05-28 13:53 | disposition home or self-care (01) | DRG 844 ==
LOC: PHED 11:50 → PHEDA 16:19 → PHEDH 23:16 → PHICU 05-27 09:15 → PH3A 05-28 09:00
PROVIDERS: ADMIT Hospitalist; ATTEND Hospitalist
DX: D49.89 Neoplasm of unspecified behavior of other specified sites (principal); N13.39 Other hydronephrosis; R31.29 Other microscopic hematuria; I10 Essential (primary) hypertension; R63.4 Abnormal weight loss; K21.9 Gastro-esophageal reflux disease without esophagitis; M19.90 Unspecified osteoarthritis, unspecified site; Z68.23 Body mass index [BMI] 23.0-23.9, adult; Z90.710 Acquired absence of both cervix and uterus; Z96.653 Presence of artificial knee joint, bilateral
CPT/HCPCS: 71045; 74176; 78708; 80048; 81001; 82378; 83615; 83690; 85025; 85610; 85730; 86304; 96360; A9539; J1940; J7030